=== PATIENT | male | born 1980 | race Caucasian/White ===

== ENCOUNTER 2019-08-31 12:56 | Emergency (ER) | payer OTHER, SELFPAY ==
--- NOTE | 2019-08-31 13:01 | ED.GENADULT ---
HPI - General Adult General Chief complaint: Ear Stated complaint: ear pain Time Seen by Provider: 08/31/19 13:10 Source: patient Mode of arrival: ambulatory Limitations: no limitations History of Present Illness HPI narrative: 39-year-old male patient presents the [facility] with complaints of right ear pain. Patient states he feels very clogged and full. Patient denies any fevers, runny nose, sore throat, coughing, chest pain or shortness of breath. Related Data Home Medications Medication Instructions Recorded Confirmed No Home Medications 08/31/19 08/31/19 Review of Systems Review of Systems: Narrative: CONSTITUTIONAL: Denies fever, chills, or sweats. EYES: Denies visual changes, redness, or discharge. ENT: Denies rhinorrhea, congestion, sore throat, positive right otalgia. CARDIOVASCULAR: Denies chest pain, palpitations, or edema. RESPIRATORY: Denies cough or dyspnea. GASTROINTESTINAL: Denies abdominal pain, nausea, vomiting, or diarrhea. GENITOURINARY: Denies dysuria or hematuria. SKIN: Denies rash or itching. MUSCULOSKELETAL: Denies back pain, joint pain, or myalgia. NEUROLOGIC: Denies headache, numbness, or weakness. PSYCHIATRIC: Denies anxiety or depression. [facility] Social History Social History Gender identity (if verbalized by the patient): Male Comments At the time of my signature I agree with nursing past medical history, surgical, social, and family history. There is no relevant family history pertinent to the presenting complaint. Exam Narrative: Exam Narrative: GENERAL: Well-appearing, well-nourished, and in no acute distress. HEAD: Normocephalic, atraumatic. EYES: PERRLA and EOMI. ENT: Nares clear, no rhinorrhea or epistaxis. Mucous membranes moist. Unable to see the TM in the right ear due to cerumen impaction. NECK: Supple. No lymphadenopathy CHEST: Clear to auscultation. No respiratory distress. HEART: Regular rate and rhythm. No murmur heard. Normal peripheral pulses. ABDOMEN: Soft, nontender, nondistended, normal active bowel sounds. EXTREMITIES: Normal range of motion. No edema. SKIN: Warm, dry, no rash. NEURO: No focal deficits. Alert and oriented x3. Course Vital Signs Vital signs: Vital Signs Temperature 36.8 C 08/31/19 13:07 Pulse Rate 54 L 08/31/19 13:07 Respiratory Rate 08/31/19 13:07 Blood Pressure 123/71 08/31/19 13:07 Pulse Oximetry 100 08/31/19 13:07 Temperature 36.8 C 08/31/19 13:07 Pulse Rate 54 L 08/31/19 13:07 Respiratory Rate 08/31/19 13:07 Blood Pressure 123/71 08/31/19 13:07 Pulse Oximetry 100 08/31/19 13:07 Vital signs reviewed. Procedures Ear Wax Removal Right Ear: Ear Wax Removal Date: 08/31/19 Ear Wax Removal Time: 13:15 Cerumenolytic Used: 5-10% Sodium Bicarb solution Results: Re-examined: cerumen removed completely TM Examination: TM(s) intact, normal appearance Ear Canal Exam: atraumatic Patient Tolerated Procedure: well Complications: no problems Technique: ear canal irrigated and ear canal curetted Additional Comments: The patient had cerumen removed from the R ear canal with warm water and peroxide irrigation and a loop in order to visualize the TM. The TM has no perforations or erythema post procedure. There were no complications. Medical Decision Making Differential Diagnosis Differential Diagnosis: Differential diagnosis: Otitis media, otitis externa, perforated TM, infection of the outer ear, foreign body or cerumen impaction, ruptured TM, acute mastoiditis, ligament otitis externa, dehydration, pneumonia, sepsis, dental or intraoral infection, TMJ dysfunction Patient diets does appear that we got all the wax out of the ear and patient does verbalize that he is feeling better after the wax was removed. Discussed with him that he should not be using Q-tips for this typically makes the impaction
[2019-08-31 13:07] VITALS: BP 123/71; PULSE 54; RESP 20; TEMP 36.8; O2SAT 100
--- NOTE | 2019-08-31 13:30 | PC.NURSE ---
right ear irrigation by Alexander TEIXEIRA with warm water
== END 2019-08-31 13:27 | disposition home or self-care (01) ==
PROVIDERS: Emergency Provider Nurse Practitioner Family
DX: H61.21 Impacted cerumen, right ear (principal)
CPT/HCPCS: 69210; 99202; G0463